=== PATIENT | male | born 1945 | race Caucasian/White ===

== ENCOUNTER 2021-11-27 16:16 | Observation (INO) | payer MEDICARE ==
[~2021-11-27 16:16] MED LIST: Lidocaine 1% (PF) 30 ML VIAL ONE; PROPOFOL 200 MG/20 ML VIAL ONE
[2021-11-27 17:05] VITALS: BMI 27.3
[2021-11-27] MEDS ORDERED: Diltiazem HCl 125 MG, Admixture Fee 1 EACH in Sodium Chloride 0.9% 100 ML IVPB SCH (18:15)
[2021-11-27] MEDS: Famotidine 20 MG TAB PO SCH (20:31)
[2021-11-27] MEDS: Apixaban 5 MG TAB PO SCH (20:31)
[2021-11-27] MEDS: Acetaminophen 325 MG TAB PO PRN (20:32)
[2021-11-27] MEDS ORDERED: Tamsulosin HCl 0.4 MG CAP PO SCH (21:00)
[2021-11-27] MEDS ORDERED: ALPRAZolam 0.5 MG TAB PO PRN (21:03)
[2021-11-27] MEDS: Carvedilol 6.25 MG TAB PO SCH (21:17)
[2021-11-28] MEDS: Acetaminophen 325 MG TAB PO PRN (03:43)
[2021-11-28 04:23] LABS: #Eosinphils 0.2 10x3/uL (0.0-0.5); #Monocytes 0.7 10x3/uL (0.0-1.1); %Basophils 0.5 % (0.0-2.0); %Eosinophils 3.2 % (0.0-6.0); %Monocytes 10.4 % (0.0-10.0); %Neutrophils 59.7 % (40.0-75.0); Hemoglobin 14.8 g/dL (13.5-17.5); Mean Corpuscular HGB CONC 34.7 g/dL (32.0-36.0); Mean Corpuscular Hemoglobin 32.6 pg (27.0-33.0); Mean Corpuscular Volume 93.8 fl (81.2-95.1); Mean Platelet Volume 10.6 fl (7.4-10.4); Platelet Count 187 10x3/uL (150-450); RBC Distribution Width 12.2 % (11.5-14.5); Red Blood Cell (RBC) Count 4.54 10x6/uL (4.32-5.72); White Blood Cell (WBC) Count 6.6 10x3/uL (3.5-10.5)
[2021-11-28 04:42] LABS: ALT (SGPT) 27 U/L (8-55); AST (SGOT) 21 U/L (5-34); Albumin 3.8 g/dL (3.4-4.8); Alkaline Phosphatase 46 U/L (40-110); Anion Gap 14 mmol/L (10-20); BUN (Urea Nitrogen) 13 mg/dL (8.4-25.7); Bilirubin, Total 1.4 mg/dL (0.2-1.2); Calc. Creatinine Clearance 100 mL/min (70-130); Calcium 9.1 mg/dL (7.8-10.44); Carbon Dioxide 21 mmol/L (23-31); Chloride 103 mmol/L (98-107); Globulin 2.9 g/dL (2.4-3.5); Glucose 93 mg/dL (83-110); Potassium 3.9 mmol/L (3.5-5.1); Protein, Total 6.7 g/dL (5.8-8.1); Sodium 134 mmol/L (136-145)
[2021-11-28] MEDS ORDERED: Aspirin Chewable 81 MG TAB PO SCH (09:00)
[2021-11-28] MEDS ORDERED: Atorvastatin Calcium 20 MG TAB PO SCH (09:00)
[2021-11-28] MEDS ORDERED: Ezetimibe 10 MG TAB PO SCH (09:00)
[2021-11-28] MEDS: Carvedilol 6.25 MG TAB PO SCH (10:14)
[2021-11-28] MEDS: Famotidine 20 MG TAB PO SCH (10:15)
[2021-11-28] MEDS: Apixaban 5 MG TAB PO SCH (10:15)
[2021-11-28 10:16] VITALS: BP 128/84
[2021-11-28] MEDS ORDERED: Dronedarone HCl 400 MG TAB PO SCH ×2 (12:00→17:00)
== END 2021-11-28 15:20 | disposition home or self-care (01) ==
LOC: CSHICU 16:16 → INTOOBSV 16:16
PROVIDERS: ADMIT Internal Medicine; ATTEND Family Medicine
DX: I48.91 Unspecified atrial fibrillation (principal); Z79.01 Long term (current) use of anticoagulants; E78.5 Hyperlipidemia, unspecified; I10 Essential (primary) hypertension; Z95.1 Presence of aortocoronary bypass graft; Z79.82 Long term (current) use of aspirin; I73.9 Peripheral vascular disease, unspecified
CPT/HCPCS: 71045; 81003; 83735; 84484; 92960; 93005; 93306; U0002; 36415; 80053; 84443; 85025; 96374; G0378; J2001; J2704; J3490

== ENCOUNTER 2022-08-26 14:27 | Observation (INO) | payer MEDICARE ==
[2022-08-26 15:04] LABS: #Neutrophils 8.8 10x3/uL (1.5-8.4); %Basophils 0.2 % (0.0-2.0); %Eosinophils 0.3 % (0.0-6.0); %Lymphocytes 11.3 % (18.0-47.0); %Monocytes 8.9 % (0.0-10.0); Hemoglobin 14.5 g/dL (13.5-17.5); Mean Corpuscular HGB CONC 34.8 g/dL (32.0-36.0); Mean Corpuscular Hemoglobin 32.4 pg (27.0-33.0); Mean Corpuscular Volume 93.1 fl (81.2-95.1); Platelet Count 222 10x3/uL (150-450); RBC Distribution Width 13.1 % (11.5-14.5); Red Blood Cell (RBC) Count 4.48 10x6/uL (4.32-5.72); White Blood Cell (WBC) Count 11.1 10x3/uL (3.5-10.5)
[2022-08-26 15:12] LABS: ALT (SGPT) 20 U/L (8-55); AST (SGOT) 16 U/L (5-34); Albumin 4.2 g/dL (3.4-4.8); Alkaline Phosphatase 56 U/L (40-110); Anion Gap 12 mmol/L (10-20); BUN (Urea Nitrogen) 15 mg/dL (8.4-25.7); Bilirubin, Total 2.6 mg/dL (0.2-1.2); Calc. Creatinine Clearance 0 mL/min (70-130); Calcium 9.5 mg/dL (7.8-10.44); Carbon Dioxide 25 mmol/L (23-31); Chloride 98 mmol/L (98-107); Estimated GFR 84; Globulin 2.8 g/dL (2.4-3.5); Glucose 106 mg/dL (83-110); Potassium 4.1 mmol/L (3.5-5.1); Sodium 131 mmol/L (136-145)
[2022-08-26] MEDS ORDERED: Ondansetron PF 4 MG/2 ML Vial IVP PRN (15:21)
[2022-08-26] MEDS ORDERED: Acetaminophen 325 MG TAB PO PRN (15:21)
[2022-08-26] MEDS ORDERED: Ondansetron ODT 4 MG TAB PO PRN (15:21)
[2022-08-26] MEDS ORDERED: Guaifenesin DM 100-10/5 ML UDCUP PO PRN (15:21)
[2022-08-26] MEDS ORDERED: Senokot S 8.6-50 MG TAB PO PRN (15:21)
[2022-08-26] MEDS ORDERED: Digoxin 0.5 MG/2 ML AMP ONE (16:20)
[2022-08-26] MEDS ORDERED: Tamsulosin HCl 0.4 MG CAP PO SCH (21:00)
[2022-08-26] MEDS ORDERED: Apixaban 5 MG TAB ONE (21:02)
[2022-08-26] MEDS ORDERED: Carvedilol 12.5 MG TAB ONE (21:03)
[2022-08-26] MEDS ORDERED: Carvedilol 3.125 MG TAB ONE (21:04)
[2022-08-26] MEDS ORDERED: Tamsulosin HCl 0.4 MG CAP ONE (21:05)
[2022-08-26] MEDS ORDERED: Acetaminophen 325 MG TAB ONE (21:05)
[2022-08-26] MEDS: Amiodarone 200 MG TAB PO SCH (21:22)
[2022-08-26] MEDS: Carvedilol 6.25 MG TAB PO SCH (21:22)
[2022-08-26] MEDS: Apixaban 5 MG TAB PO SCH (21:22)
[2022-08-27] MEDS ORDERED: ALPRAZolam 0.5 MG TAB ONE (01:43)
[2022-08-27] MEDS ORDERED: ALPRAZolam 0.5 MG TAB PO SCH ×2 (02:00)
[2022-08-27 03:43] LABS: #Eosinphils 0.1 10x3/uL (0.0-0.5); #Monocytes 0.9 10x3/uL (0.0-1.1); #Neutrophils 7.2 10x3/uL (1.5-8.4); %Basophils 0.3 % (0.0-2.0); %Eosinophils 1.4 % (0.0-6.0); %Monocytes 9.2 % (0.0-10.0); %Neutrophils 73.8 % (40.0-75.0); Mean Corpuscular HGB CONC 34.7 g/dL (32.0-36.0); Mean Corpuscular Hemoglobin 32.3 pg (27.0-33.0); Mean Corpuscular Volume 93.1 fl (81.2-95.1); Mean Platelet Volume 11.1 fl (7.4-10.4); Platelet Count 196 10x3/uL (150-450); RBC Distribution Width 13.1 % (11.5-14.5); Red Blood Cell (RBC) Count 4.03 10x6/uL (4.32-5.72); White Blood Cell (WBC) Count 9.8 10x3/uL (3.5-10.5)
[2022-08-27 03:54] LABS: Anion Gap 12 mmol/L (10-20); BUN (Urea Nitrogen) 14 mg/dL (8.4-25.7); Calc. Creatinine Clearance 0 mL/min (70-130); Calcium 8.8 mg/dL (7.8-10.44); Carbon Dioxide 22 mmol/L (23-31); Chloride 101 mmol/L (98-107); Estimated GFR 89; Glucose 89 mg/dL (83-110); Magnesium 1.9 mg/dL (1.6-2.6); Potassium 3.8 mmol/L (3.5-5.1); Sodium 131 mmol/L (136-145)
[2022-08-27] MEDS ORDERED: Lidocaine 2% MPF 10 ML AMP (For Epidural Use) ONE (06:45)
[2022-08-27] MEDS ORDERED: PROPOFOL 20 ML ONE (06:45)
[2022-08-27] MEDS ORDERED: Apixaban 5 MG TAB ONE (08:09)
[2022-08-27] MEDS: Amiodarone 200 MG TAB PO SCH (08:16)
[2022-08-27] MEDS: Apixaban 5 MG TAB PO SCH (08:17)
[2022-08-27 08:44] VITALS: BP 153/86
[2022-08-27] MEDS: Carvedilol 6.25 MG TAB PO SCH (08:44)
[2022-08-27] MEDS ORDERED: Atorvastatin Calcium 20 MG TAB PO SCH ×2 (09:00→21:00)
== END 2022-08-27 09:22 | disposition home or self-care (01) ==
LOC: CSHERS 14:27 → CSHERHOLD 18:29
PROVIDERS: ADMIT Hospitalist; ATTEND Hospitalist
PROC: 5A2204Z Restoration of Cardiac Rhythm, Single (ICD-10-PCS; principal; 2022-08-27)
DX: I48.92 Unspecified atrial flutter (principal); I48.0 Paroxysmal atrial fibrillation; I25.10 Atherosclerotic heart disease of native coronary artery without angina pectoris; I11.9 Hypertensive heart disease without heart failure; E78.5 Hyperlipidemia, unspecified; I73.9 Peripheral vascular disease, unspecified; R79.89 Other specified abnormal findings of blood chemistry; N40.0 Benign prostatic hyperplasia without lower urinary tract symptoms; Z79.82 Long term (current) use of aspirin; Z79.01 Long term (current) use of anticoagulants; Z79.899 Other long term (current) drug therapy; Z95.1 Presence of aortocoronary bypass graft
CPT/HCPCS: 36415; 71045; 80048; 80053; 83735; 83880; 84443; 84484; 85025; 92960; 93005; 93010; 94760; 96374; G0378; J1160; J2704